=== PATIENT | female | born 1990 | race American Indian/Alaskan Native ===

== ENCOUNTER 2017-01-02 10:42 | Outpatient (CLI) | payer OTHER ==
--- NOTE | 2017-01-02 11:17 | XRay Report ---
XRAY RIGHT KNEE FOUR VIEWS: 01/02/17 10:42:00 CLINICAL: Knee pain. FINDINGS: Mild osteopenia. Mild medial joint space narrowing. The lateral joint space is slightly widened. Mild patellofemoral joint arthritis with inferior osteophyte. Normal medial and lateral patellar joint spaces on the sunrise view. No fracture or dislocation. No joint effusion.A few soft tissue calcifications appear to be extra-articular. IMPRESSION: Mild arthritis.
== END 2017-01-02 10:43 | disposition home or self-care (01) ==
LOC: SPVIMAG 10:42
PROVIDERS: ATTEND Orthopaedic Surgery
DX: M17.11 Unilateral primary osteoarthritis, right knee (principal); M25.761 Osteophyte, right knee; M25.861 Other specified joint disorders, right knee